=== PATIENT | male | born 1945 | race African-American/Black ===

== ENCOUNTER 2017-10-26 13:05 | Emergency (ER) | payer OTHER | END 2017-10-26 15:39 | LOC: EME 13:05 | PROC: 5A12012 Performance of Cardiac Output, Single, Manual (ICD-10-PCS; principal; 2017-10-26) | DX: I46.9 Cardiac arrest, cause unspecified (principal); E11.9 Type 2 diabetes mellitus without complications; Z79.4 Long term (current) use of insulin; E78.5 Hyperlipidemia, unspecified; I10 Essential (primary) hypertension; Z79.82 Long term (current) use of aspirin | CPT/HCPCS: 99281; 99284; J0171; J0282; J2310 ==